=== PATIENT | male | born 1965 | race Two or more races ===

== ENCOUNTER 2020-10-14 10:53 | Emergency (ER) | payer SELFPAY ==
[~2020-10-14] VITALS: Ht 182.9 cm; Wt 100.0 kg
[2020-10-14] MEDS ORDERED: SODIUM CHLORIDE 0.9% 1,000 ML IV ONE (11:15)
[2020-10-14] MEDS ORDERED: LORAZEPAM 2MG/ML CPJ IM ONE ×2 (11:15→12:15)
[2020-10-14] MEDS ORDERED: OLANZAPINE 10 MG/VIAL IM ONE (11:15)
[2020-10-14] MEDS ORDERED: BACITRACIN ZINC OINT UDPKT TOP ONE (11:15)
[2020-10-14] MEDS ORDERED: LIDOCAINE HCL/EPINEPHRINE 1%-EPI 1:100,000 10 ML VIAL IJ ONE (11:15)
[2020-10-14] MEDS ORDERED: TETANUS, DIPHTHERIA, PERTUSSIS VAC/PF 0.5ML (>7YR OLD) IM ONE (11:15)
[2020-10-14] MEDS ORDERED: LIDOCAINE HCL/EPINEPHRINE 1%-EPI 1:100,000 20 ML VIAL INFIL ONE (11:45)
[2020-10-14 13:39] LABS: BASOPHILS % 0.9 % (0.0-2.0); EOSINOPHILS % 2.4 % (0.0-5.0); HEMATOCRIT. 31.7 % (42.0-52.0); HEMOGLOBIN. 10.7 g/dL (14.0-18.0); LYMPHOCYTES % 34.7 % (20.0-50.0); MEAN CORPUSCULAR HEMOGLOBIN 28.8 pg (28.0-32.0); MEAN CORPUSCULAR VOLUME 85.2 fL (80.0-94.0); MEAN PLATELET VOLUME 7.8 fl (7.4-10.4); MONOCYTES % 8.6 % (2.0-8.0); NEUTROPHILS % 53.4 % (40.0-76.0); PLATELET 217 x1000/uL (130-400); RED BLOOD CELL COUNT 3.72 mill/uL (4.7-6.1); RED CELL DISTRIBUTION WIDTH 13.5 % (11.6-14.6)
[2020-10-14 13:43] LABS: CHLORIDE 112 mEq/L (98-107)
[2020-10-14 13:47] LABS: ETHANOL BLOOD < 10 mg/dL
[2020-10-14 23:56] VITALS: BP 136/86
== END 2020-10-14 23:56 | disposition home or self-care (01) ==
LOC: ER 11:06
DX: S01.81XA Laceration without foreign body of other part of head, initial encounter (principal); F23 Brief psychotic disorder; G93.49 Other encephalopathy; F19.10 Other psychoactive substance abuse, uncomplicated; Z78.1 Physical restraint status; X58.XXXA Exposure to other specified factors, initial encounter; Y93.89 Activity, other specified; Y92.149 Unspecified place in prison as the place of occurrence of the external cause; Y99.8 Other external cause status
CPT/HCPCS: 12011; 36415; 70450; 80053; 80307; 80320; 80329; 85025; 90471; 90715; 96372; 99285; J2060; J3490; J7030; Z7610; G0480